=== PATIENT | female | born 1995 | race Caucasian/White ===

== ENCOUNTER → 2018-02-07 | Outpatient (CLI) | payer BC | END | disposition home or self-care (01) | LOC: KCIC 15:13 | DX: M25.511 Pain in right shoulder (principal) | CPT/HCPCS: 73030 ==

== ENCOUNTER 2019-05-20 16:11 | Emergency (ER) | payer BC ==
[~2019-05-20] VITALS: Ht 165.1 cm; Wt 83.9 kg
[2019-05-20 17:00] VITALS: BP 152/92
[2019-05-20 17:44] LABS: BILIRUBIN,URINE NEGATIVE (NEG); CLARITY,URINE CLEAR; COLOR,URINE YELLOW; NITRITE,URINE NEGATIVE (NEG); PH,URINE 7.5; PROTEIN,URINE NEGATIVE (NEG-TRACE); UROBILINOGEN,URINE 0.2 mg/dL (0.2 mg/dL)
[2019-05-20 18:05] LABS: BACTERIA,URINE FEW /HPF (0-FEW); RBC,URINE 0 /HPF (0-2); SQUAMOUS EPITHELIAL CELL,UR FEW /LPF
[2019-05-20] MEDS ORDERED: CYCL10TA2 PO (18:23)
[2019-05-20] MEDS ORDERED: PRED50TA PO (18:23)
--- NOTE | 2019-05-20 18:25 | PHYS DOC ---
Past Medical History Past Medical History: Hypothyroid, Other Additional Past Medical Histor: PTSD,MOOD DISORDER,KIDNEY STONES (MELLISA BRUMFIELD APRN) Past Surgical History: Tonsillectomy (MELLISA BRUMFIELD APRN) Alcohol Use: None Drug Use: Marijuana (MELLISA BRUMFIELD APRN) Adult General Chief Complaint Chief Complaint: PLEURISY HPI HPI Patient is a 23 year old female who presents to the ER with complaints of left mid to low back pain that has been persistent for the last 6 weeks. Patient states she was given 3 days worth of hydrocodone and Flexeril last week by [facility], her symptoms improved at that time but have retu rned since she has been out of medications. Currently, she rates her pain as 7 out of 10 on the pain scale, pain increases with palpation. ROS Patient denies any fever, cough, shortness of breath, dysuria, hematuria, increased urinary frequency, numbness/tingling of extremities, chest pain, or headache. Patient states the pain was so sharp when it began this afternoon that she felt lightheaded, she denies any syncope, or loss of consciousness. All other ROS is neg unless otherwise noted in HPI. (MELLISA BRUMFIELD APRN) Review of Systems Review of Systems See Above (MELLISA BRUMFIELD APRN) Allergies Allergies Allergies Coded Allergies Type Severity Reaction Last Updated Verified Penicillins Allergy Severe hives 05/20/19 Yes (BARBARA GARCIA DO) Physical Exam Physical Exam See Above Constitutional: Well developed, well nourished, no acute distress, non-toxic appearance. [] HENT: Normocephalic, atraumatic, bilateral external ears normal, Neck: Normal range of motion, no stridor. [] Cardiovascular:Heart rate regular rhythm, no murmur [] Lungs & Thorax: Bilateral breath sounds clear to auscultation [] Skin: Warm, dry, no erythema, no rash. [] Back: No deformity, left thoracic and upper lumbar paraspinal tenderness, no CVA tenderness. [] Extremities: No cyanosis, ROM intact, no edema. [] Neurologic: Alert and oriented X 3, normal motor function, normal sensory function, no focal deficits noted. [] Psychologic: Affect normal, judgement normal, mood normal. [] (MELLISA BRUMFIELD APRN) Current Patient Data Vital Signs Vital Signs Date Time Temp Pulse Resp B/P (MAP) Pulse Ox O2 Delivery O2 Flow Rate FiO2 05/20/19 17:00 98.4 90 16 152/92 (112) 97 Room Air 98.4 (BARBARA GARCIA DO) Lab Values Laboratory Tests Test 05/20/19 17:39 05/20/19 17:40 POC Urine HCG, Qualitative Hcg negative (Negative) Urine Collection Type Clean catch Urine Color Yellow Urine Clarity Clear Urine pH 7.5 Urine Specific [place] 1.010 Urine Protein Negative mg/dL (NEG-TRACE) Urine Glucose (UA) Negative mg/dL (NEG) Urine Ketones (Stick) Negative mg/dL (NEG) Urine Blood Trace (NEG) Urine Nitrite Negative (NEG) Urine Bilirubin Negative (NEG) Urine Urobilinogen Dipstick 0.2 mg/dL (0.2 mg/dL) Urine Leukocyte Esterase Negative (NEG) Urine RBC 0 /HPF (0-2) Urine WBC 1-4 /HPF (0-4) Urine Squamous Epithelial Cells Few /LPF Urine Bacteria Few /HPF (0-FEW) (BARBARA GARCIA DO) EKG EKG [] (MELLISA BRUMFIELD APRN) Radiology/Procedures Radiology/Procedures [] (MELLISA BRUMFIELD APRN) Course & Med Decision Making Course & Med Decision Making Pertinent Labs and Imaging studies reviewed. (See chart for details) dx: Left thoracic back pain, left lumbar back pain ddx; UTI, Kidney stone, pneumonia UA was negative for any RBCs, pain is reproducible with palpation of the thoracic and lumbar left paraspinal areas. Prescriptions written for prednisone, and Flexeril. Follow up with primary care doctor later this week. Return to the ER if symptoms worsen. Patient verbalized an understanding of home care, medications, follow-up, and return to ED instructions and was in agreement with the plan of care. [] (MELLISA BRUMFIELD APRN) Dragon Disclaimer Dragon Disclaimer This electronic medical record was generated, in whole or in part, using a voice recognition dictation system. (MELLISA BRUMFIELD APRN) Departure Departure Impression: Primary Impression: Left-sided thoracic back pain Additional Impression: Left lumbar pain Disposition: 01 HOME, SELF-CARE Condition: STABLE Referrals: ANDRE SHARMA APRN (PCP) Patient Instructions: Back Pain, Adult, [id number] Additional Instructions: Fill prescriptions and use them as directed. Apply ice or heat to sore areas as needed for comfort. Activity as tolerated. Follow-up with your primary care doctor later this week if symptoms persist, return to the ER if symptoms worsen. Scripts Prednisone (PREDNISONE) 50 Mg Tablet 1 TAB PO DAILY, #5 TAB 0 Refills Prov: MELLISA BRUMFIELD APRN 05/20/19 Cyclobenzaprine Hcl (CYCLOBENZAPRINE HCL) 10 Mg Tablet 10 MG PO TID PRN for PAIN for 10 Days, #30 TAB 0 Refills Prov: MELLISA BRUMFIELD APRN 05/20/19 Attending Signature Attending Signature I have reviewed the PA/TECHNICAL STENOGRAPHER's note and plan of care. I was available for consultation as needed during the patient's visit in the emergency department. I agree with the clinical impression, plan, and disposition. (BARBARA GARCIA DO) Problem Qualifiers Primary Impression: Left-sided thoracic back pain Chronicity: acute Qualified Codes: M54.6 - Pain in thoracic spine Additional Impression: Left lumbar pain Chronicity: acute Sciatica presence: without sciatica Qualified Codes: M54.5 - Low back pain MELLISA BRUMFIELD APRN May 20, 2019 18:25 BARBARA GARCIA DO May 21, 2019 04:36
== END 2019-05-20 18:35 | disposition home or self-care (01) ==
LOC: ER 16:11
DX: M54.5 Low back pain (principal); M54.6 Pain in thoracic spine; R42 Dizziness and giddiness; E03.9 Hypothyroidism, unspecified; Z87.442 Personal history of urinary calculi; Z88.0 Allergy status to penicillin
CPT/HCPCS: 81001; 81025; 99283

== ENCOUNTER → 2019-05-31 | Outpatient (CLI) | payer BC ==
[2019-05-20 17:00] VITALS: BP 152/92
[~2019-05-31] MED LIST: CYCL10TA2 PO; PRED50TA PO
--- NOTE | 2019-05-31 16:31 | KCIC ---
EXAM: Thoracic spine MRI without contrast. HISTORY: Left-sided back pain. TECHNIQUE: Multiplanar and multisequence magnetic resonance imaging of the thoracic spine was performed without contrast. COMPARISON: None. FINDINGS: The vertebral bodies are normal in height and the disc spaces are preserved. There is no acute or subacute fracture. The thoracic spinal cord is unremarkable. There is no convincing thoracic foraminal or central canal stenosis. There is mild diffusely decreased T1 marrow signal intensity, most commonly due to anemia in female patients of this age. Is no suspicious osseous lesion is seen. IMPRESSION: No acute finding or evidence of thoracic foraminal or central canal stenosis. Please refer to the separate report for the lumbar spine MRI on the same date for additional findings. Electronically signed by: Janey Loaiza MD (05/31/2019 4:28 PM) [id number]
--- NOTE | 2019-05-31 16:35 | KCIC ---
EXAM: Lumbar spine MRI without contrast. HISTORY: Left-sided back pain. TECHNIQUE: Multiplanar, multisequence magnetic resonance imaging of the lumbar spine was performed without contrast. COMPARISON: None. FINDINGS: The vertebral bodies are normal in height and the disc spaces are preserved. There is no suspicious osseous lesion. There is mild diffuse decreased T1 marrow signal intensity, most commonly due to anemia in female patients of this age. There is no suspicious osseous lesion. The conus terminates at L1. There is no disc protrusion. There is no foraminal or central canal stenosis. IMPRESSION: No acute finding or significant foraminal or central canal stenosis. Please refer to the separate report for the thoracic spine MRI on the same date for additional findings. Electronically signed by: Janey Loaiza MD (05/31/2019 4:33 PM) [facility]
== END | disposition home or self-care (01) ==
LOC: KCIC MRI 15:07
PROVIDERS: ATTEND Nurse Practitioner Family
DX: M54.5 Low back pain (principal); Z90.89 Acquired absence of other organs
CPT/HCPCS: 72146; 72148